=== PATIENT | male | born 1990 | race African-American/Black ===

== ENCOUNTER 2017-01-02 11:27 | Emergency (ER) | payer OTHER ==
[~2017-01-02] VITALS: Ht 182.9 cm; Wt 79.4 kg
--- NOTE | ~2017-01-02 | EKG ---
[place] [address] [facility] [address] [place] [address] ELECTROCARDIOGRAM REPORT Name: KULDEEP ZHANG [id number] Admission: 01/02/17 Attend Phys: Discharge: 01/02/17 Date of : 89 Report #: [id number] THIS REPORT FOR: //name// [facility] ED Test Date: 2017-01-02 Test Time: 11:34:37 Pat Name: KULDEEP ZHANG Department: Room: Gender: M [employer] Work[employer]: [employer] : 1990 Requested By: Malinda Medina Order Number: [id number] MD: Jeovany Marie Measurements Intervals [place] Rate: 66 P: 65 [place]: 123 QRS: 68 QRSD: 86 T: 40 QT: 379 QTc: 398 Interpretive Statements Sinus rhythm ST elev, probable normal early repol pattern Baseline wander in lead(s) V4,V5 No previous ECG available for comparison Electronically Signed On 01-02-2017 14:21:08 CDT by Jeovany Marie [email or web address] <ELECTRONICALLY SIGNED> By: Jeovany Marie MD 01/02/17 1421 D: [id number] Jeovany Marie MD /[place]
[~2017-01-02 11:27] MED LIST: ALBUTEROL INH INH; AMOXICILLIN 50500 M1 PO; FLEXERIL PO; FLONASE 0.05%50 MCG NASAL; IBUPROFEN 800800 M1 PO; IMODIUM ADVANC1 EAC1 PO; NAPROXEN DELAY500 M1 PO; NOHOMEMEDICATIONS; NORCO 5-325 TA1 EACH PO; TESSALON PERLE100 MG PO; ULTRAM 50MG TAB50 MG PO; ZPAK PO
[2017-01-02] MEDS ORDERED: PRILOSEC OTC20 MG PO (12:26)
[2017-01-02] MEDS ORDERED: NORCO 5-325 TA1 EACH PO (12:42)
[2017-01-02 13:17] VITALS: BP 122/78
== END 2017-01-02 13:17 | disposition home or self-care (01) ==
LOC: ER 11:27
DX: K21.9 Gastro-esophageal reflux disease without esophagitis (principal); F17.210 Nicotine dependence, cigarettes, uncomplicated

== ENCOUNTER 2018-02-03 20:09 | Emergency (ER) | payer OTHER ==
[~2018-02-03] VITALS: Ht 182.9 cm; Wt 79.4 kg
[~2018-02-03 20:09] MED LIST changes: +PRILOSEC OTC20 MG PO
[2018-02-03] MEDS ORDERED: NOHOMEMEDICATIONS (20:26)
[2018-02-03] MEDS ORDERED: REGLAN 10 MG TA10 MG PO (20:42)
[2018-02-03 21:26] VITALS: BP 112/68
== END 2018-02-03 21:20 | disposition home or self-care (01) ==
LOC: ER 20:09
DX: R51 Headache (principal); I10 Essential (primary) hypertension; K21.9 Gastro-esophageal reflux disease without esophagitis; F17.210 Nicotine dependence, cigarettes, uncomplicated

== ENCOUNTER 2019-01-01 18:24 | Emergency (ER) | payer OTHER ==
[~2019-01-01] VITALS: Ht 182.9 cm; Wt 80.7 kg
[~2019-01-01 18:24] MED LIST changes: +REGLAN 10 MG TA10 MG PO
[2019-01-01] MEDS ORDERED: AMOXICILLIN 50500 MG PO (19:24)
[2019-01-01 19:48] VITALS: BP 117/74
== END 2019-01-01 19:49 | disposition home or self-care (01) ==
LOC: ER 18:24
DX: H61.23 Impacted cerumen, bilateral (principal); H60.92 Unspecified otitis externa, left ear; F17.210 Nicotine dependence, cigarettes, uncomplicated; K21.9 Gastro-esophageal reflux disease without esophagitis